=== PATIENT | female | born 1990 | race African-American/Black ===

== ENCOUNTER 2019-03-11 16:11 | Emergency (ER) | payer SELFPAY ==
[~2019-03-11] VITALS: Ht 167.6 cm; Wt 77.1 kg
[2019-03-11 16:40] VITALS: BP 122/78
[2019-03-11] MEDS ORDERED: LIDOCAINE 1% Multi-Dose 20 ML VIAL. INJ ONE (17:00)
[2019-03-11 17:06] LABS: BILIRUBIN,URINE NEGATIVE (NEG); CLARITY,URINE CLOUDY; COLOR,URINE YELLOW; NITRITE,URINE NEGATIVE (NEG); PROTEIN,URINE NEGATIVE (NEG-TRACE)
[2019-03-11 17:12] LABS: BACTERIA,URINE MANY /HPF (0-FEW); RBC,URINE 0 /HPF (0-2); SQUAMOUS EPITHELIAL CELL,UR MANY /LPF
[2019-03-11] MEDS ORDERED: HYDR-3164 PO (17:35)
[2019-03-11] MEDS ORDERED: CEPH-264 PO (17:35)
--- NOTE | 2019-03-11 17:35 | PHYS DOC ---
Past Medical History Past Medical History: Bartholin Cyst Past Surgical History: Other Additional Past Surgical Histo: I&D Bartholin Cyst Alcohol Use: None Drug Use: None Adult General Chief Complaint Chief Complaint: VAGINAL PROBLEM HPI HPI Patient is a 28 year old F who arrives with complaints of a large sore on her labia. She reports a hx of a bartholin gland abscess in the past. Pt denies any vaginal discharge or any concerns for STD. Review of Systems Review of Systems Constitutional: Denies fever or chills [] Respiratory: Denies cough or shortness of breath [] Cardiovascular: Denies chest pain GI: Denies abdominal pain, nausea, vomiting, bloody stools or diarrhea [] : Denies dysuria or hematuria. Reports vaginal sore. Musculoskeletal: Denies back pain or joint pain [] Integument: Denies rash or skin lesions [] Neurologic: Denies headache, focal weakness or sensory changes [] All other systems were reviewed and found to be within normal limits, except as documented in this note. Current Medications Current Medications Current Medications Medications (Trade) Dose Ordered Sig/Troy Start Time Stop Time Status Last Admin Dose Admin Lidocaine HCl (Lidocaine 1% 20ml Vial) 10 ml 1X ONCE 03/11/19 17:00 03/11/19 17:01 DC Allergies Allergies Allergies Coded Allergies Type Severity Reaction Last Updated Verified topiramate Allergy Intermediate syncope 03/11/19 Yes Physical Exam Physical Exam Constitutional: Well developed, well nourished, no acute distress, non-toxic appearance. [] Neck: Normal range of motion, no tenderness, supple, no stridor. [] Cardiovascular:Heart rate regular rhythm, no murmur [] Lungs & Thorax: Bilateral breath sounds clear to auscultation [] Abdomen: Bowel sounds normal, soft, no tenderness, no masses, no pulsatile masses. [] Skin: Bartholin gland abscess. Back: No tenderness, no CVA tenderness. [] Extremities: No tenderness, no cyanosis, no clubbing, ROM intact, no edema. [] Neurologic: Alert and oriented X 3, normal motor function, normal sensory function, no focal deficits noted. [] Psychologic: Affect normal, judgement normal, mood normal. [] : Large R sided bartholin gland abscess noted. Current Patient Data Vital Signs Vital Signs Date Time Temp Pulse Resp B/P (MAP) Pulse Ox O2 Delivery O2 Flow Rate FiO2 5/3/19 16:40 98.1 84 16 122/78 (93) 99 Room Air 98.1 Lab Values Laboratory Tests Test 03/11/19 15:00 Urine Collection Type Unknown Urine Color Yellow Urine Clarity Cloudy Urine pH 6.0 Urine Specific [place] 1.025 Urine Protein Negative mg/dL (NEG-TRACE) Urine Glucose (UA) Negative mg/dL (NEG) Urine Ketones (Stick) Negative mg/dL (NEG) Urine Blood Negative (NEG) Urine Nitrite Negative (NEG) Urine Bilirubin Negative (NEG) Urine Urobilinogen Dipstick 1.0 mg/dL (0.2 mg/dL) Urine Leukocyte Esterase Small (NEG) Urine RBC 0 /HPF (0-2) Urine WBC 5-10 /HPF (0-4) Urine Squamous Epithelial Cells Many /LPF Urine Bacteria Many /HPF (0-FEW) Urine Mucus Marked /LPF Microbiology 03/11/19 Wet Prep - Final, Complete EKG EKG [] Radiology/Procedures Radiology/Procedures [] Course & Med Decision Making Course & Med Decision Making Pertinent Labs and Imaging studies reviewed. (See chart for details) Urine shows bacteria which could be contaminant from bartholin gland abscess. Will be on keflex for abscess and UTI. Pt's point of care is not showing up in system but was negative per nursing staff. Pt tolerated I&D well and has packing in place. Wound recheck and packing removal in 72 hours. Pt recommended to f/u with Equipment Operator/Laborer/Supervisor due to reoccurrences of this Bartholin gland abscess. Packing was difficult to place and discussed with pt that if it does fall out to start warm sitz baths at that time. Dragon Disclaimer Dragon Disclaimer This electronic medical record was generated, in whole or in part, using a voice recognition dictation system. Incision and Drainage Indication: abscess Procedure: The patient was positioned appropriately in pelvic stirrups. Local anesthesia was Lidocaine 1% 5mls. An incision was then made over the apex of the lesion and large amount of purulent material was expressed. The drainage cavity was irrigated and packed with sterile gauze. The patient tolerated the procedure well. Complications: none. Departure Departure Impression: Primary Impression: Bartholin's gland abscess Disposition: HOME, SELF-CARE Condition: IMPROVED Referrals: UNKNOWN PCP NAME (PCP) FLORENTINO MUELLER Jr, MD Patient Instructions: Bartholin's Cyst or Abscess Additional Instructions: Keep the packing in place as long as possible, but if it falls out then start doing sitz baths and warm water soaks to help it continue to drain. With abnormal periods and recurrent bartholin gland abscesses, recommend follow up with gynecology. Name is being provided. Return if symptoms worsen at anytime. Scripts Hydrocodone/Apap 5-325 (NORCO 5-325 TABLET) 1 Each Tablet 1-2 TAB PO Q4-6HRS PRN for PAIN, #15 TAB Prov: ACE WILKES 03/11/19 Cephalexin (KEFLEX) 500 Mg Capsule 1 CAP PO TID, #30 CAP Prov: ACE WILKES 03/11/19 ACE WILKES March 11, 2019 17:35
[2019-03-14 15:16] LABS: GC PROBE Negative (Negative)
== END 2019-03-11 18:02 | disposition home or self-care (01) ==
LOC: ER 16:11
DX: N75.0 Cyst of Bartholin's gland (principal); Z88.8 Allergy status to other drugs, medicaments and biological substances
CPT/HCPCS: 56420; 81001; 81025; 87071; 87075; 87086; 87491; 87591; 99284; Q0111; 87070; 87186